=== PATIENT | female | born 1970 | race Caucasian/White ===

== ENCOUNTER → 2017-02-27 | Outpatient (CLI) | payer BC ==
[2017-02-27 15:18] VITALS: BP 121/72; PULSE 72; RESP 16; TEMP 98.5; BMI 24.5
--- NOTE | 2017-02-27 15:20 | P.HPBAR ---
Bariatric H&P - History & Physicial H&P Date: 02/27/17 History & Physicial: Visit/CC: band adj Patient initial contact: Initial weight: 112.945 kg Initial weight in pounds: 249.00 Height: 5 ft 6 in Initial BMI: 40.1 Last weight: Current weight: 69.116 kg Current weight in pounds: 152.00 Current BMI: 24.5 [place] body weight (based on NIH guidelines): 58.967 kg Excess body weight loss: 81.5% The patient is a 47 year-old F who presents for Bariatric Assessment. Patient presents today for her LAP-BAND adjustment. She states her dysphagia has resolved since her band was emptied. She is requesting a fill. Past Medical History Additional Past Medical History / Comment(s): fluid retention (takes HCTZ daily) History of Any Multi-Drug Resistant Organisms: None Reported Past Surgical History: Bariatric Surgery Additional Past Surgical History / Comment(s): lap band placed 07-31-09 Past Anesthesia/Blood Transfusion Reactions: No Reported Reaction Past Psychological History: No Psychological Hx Reported Smoking Status: Former smoker Past Alcohol Use History: Rare Additional Past Alcohol Use History / Comment(s): Quit smoking with band placement in 2009. (was 1pk/day x 20 years) Past Drug Use History: None Reported Surgical - Exam Vital Signs Temp Pulse Resp BP 98.5 F 72 16 121/72 02/27/17 15:14 02/27/17 15:14 02/27/17 15:14 02/27/17 15:14 - General well developed, no distress - Abdomen Abdomen: soft, non tender Bariatric Assessment & Plan Plan: The patient's lap band was adjusted. She had 4 mL added to her band. She's ill drink water without difficulty. She'll follow-up in 2 weeks. Bariatric Checklist Checklist: Plan: Checklist: EGD: 1. Hiatal hernia: 2. H. Pylori: HgbA1c: Vitamin D: Smoking: Former smoker Primary care physician referral: kaylie ([place]) Psychiatry clearance: Cardiology clearance: Sleep study: Diet journal: VTE risk score: VTE risk level: Rehab needs at discharge:
== END | disposition home or self-care (01) ==
LOC: BARWHC3 14:43
PROVIDERS: ATTEND Surgery
DX: Z09 Encounter for follow-up examination after completed treatment for conditions other than malignant neoplasm (principal); Z98.84 Bariatric surgery status; Z87.891 Personal history of nicotine dependence
CPT/HCPCS: 99212

== ENCOUNTER → 2018-04-20 | Outpatient (CLI) | payer BC ==
[2018-04-20 11:37] VITALS: BP 123/82; PULSE 73; TEMP 97.7; BMI 24.0
--- NOTE | 2018-04-20 15:37 | P.HPBAR ---
Bariatric H&P - History & Physicial H&P Date: 04/20/18 History & Physicial: Visit/CC: lap band follow up Patient initial contact: Initial weight: 112.945 kg Initial weight in pounds: 249.00 Height: 5 ft 6 in Initial BMI: 40.1 Last weight: Current weight: 67.585 kg Current weight in pounds: 149.00 Current BMI: 24.0 [place] body weight (based on NIH guidelines): 58.967 kg Excess body weight loss: 84.0% The patient is a 48 year-old F who presents for Bariatric Assessment. Patient' s complaints of dysphagia. She had a lap band adjustments week. Past Medical History Additional Past Medical History / Comment(s): fluid retention (takes HCTZ daily) History of Any Multi-Drug Resistant Organisms: None Reported Past Surgical History: Bariatric Surgery Additional Past Surgical History / Comment(s): lap band placed 07-31-09 Past Anesthesia/Blood Transfusion Reactions: No Reported Reaction Smoking Status: Former smoker Surgical - Exam Vital Signs Temp Pulse BP 97.7 F 73 123/82 04/20/18 11:34 04/20/18 11:34 04/20/18 11:34 - General well developed, no distress - Eyes PERRL - ENT normal pinna - Neck no masses - Abdomen Abdomen: soft, non tender Bariatric Assessment & Plan Plan: Patient LAP-BAND was just. She had 2 mL removed from her LAP-BAND. She currently has 3.3 mL in her band. She was able to water without difficulty. Bariatric Checklist Checklist: Plan: Checklist: EGD: 1. Hiatal hernia: 2. H. Pylori: HgbA1c: Vitamin D: Smoking: Former smoker Primary care physician referral: kaylie ([place]) Psychiatry clearance: Cardiology clearance: Sleep study: Diet journal: VTE risk score: VTE risk level: Rehab needs at discharge:
== END | disposition home or self-care (01) ==
LOC: BARWHC3 10:50
PROVIDERS: ATTEND Surgery
DX: Z46.51 Encounter for fitting and adjustment of gastric lap band (principal); R13.10 Dysphagia, unspecified; Z98.84 Bariatric surgery status; Z87.891 Personal history of nicotine dependence
CPT/HCPCS: 99212

== ENCOUNTER → 2018-04-30 | Outpatient (CLI) | payer BC ==
[2018-04-30 15:11] VITALS: BP 150/80; PULSE 70; TEMP 97.8; BMI 25.2
--- NOTE | 2018-04-30 15:58 | P.HPBAR ---
Bariatric H&P - History & Physicial H&P Date: 04/30/18 History & Physicial: Visit/CC: lap band fill Patient initial contact: Initial weight: 112.945 kg Initial weight in pounds: 249.00 Height: 5 ft 6 in Initial BMI: 40.1 Last weight: Current weight: 70.76 kg Current weight in pounds: 156.00 Current BMI: 25.2 [place] body weight (based on NIH guidelines): 58.967 kg Excess body weight loss: 78.1% The patient is a 48 year-old F who presents for Bariatric Assessment. Patient presents today for her LAP-BAND adjustment. She currently feels hungry. Past Medical History Additional Past Medical History / Comment(s): fluid retention (takes HCTZ daily) History of Any Multi-Drug Resistant Organisms: None Reported Past Surgical History: Bariatric Surgery Additional Past Surgical History / Comment(s): lap band placed 07-31-09 Past Anesthesia/Blood Transfusion Reactions: No Reported Reaction Past Psychological History: No Psychological Hx Reported Smoking Status: Former smoker Past Alcohol Use History: Rare Additional Past Alcohol Use History / Comment(s): Quit smoking with band placement in 2009. (was 1pk/day x 20 years) Past Drug Use History: None Reported Surgical - Exam Vital Signs Temp Pulse BP 97.8 F 70 150/80 04/30/18 15:08 04/30/18 15:08 04/30/18 15:08 - General well developed, well nourished, no distress - Eyes PERRL - ENT normal pinna - Neck no masses - Respiratory normal expansion - Cardiovascular Rhythm: regular - Abdomen Abdomen: soft, non tender Bariatric Assessment & Plan Plan: Patient's lap band was adjusted. She had 1 mL added to the band. She will follow-up month. Bariatric Checklist Checklist: Plan: Checklist: EGD: 1. Hiatal hernia: 2. H. Pylori: HgbA1c: Vitamin D: Smoking: Former smoker Primary care physician referral: kaylie ([place]) Psychiatry clearance: Cardiology clearance: Sleep study: Diet journal: VTE risk score: VTE risk level: Rehab needs at discharge:
== END | disposition home or self-care (01) ==
LOC: BARWHC3 14:58
PROVIDERS: ATTEND Surgery
DX: Z46.51 Encounter for fitting and adjustment of gastric lap band (principal); T73.0XXA Starvation, initial encounter; Z98.84 Bariatric surgery status; Z87.891 Personal history of nicotine dependence
CPT/HCPCS: 99212

== ENCOUNTER → 2018-05-11 | Outpatient (CLI) | payer BC ==
[2018-05-11 09:41] VITALS: BP 110/72; PULSE 79; TEMP 97.6; BMI 26.4
--- NOTE | 2018-05-28 16:16 | P.HPBAR ---
Bariatric H&P - History & Physicial H&P Date: 05/11/18 History & Physicial: Visit/CC: lap band follow up Patient initial contact: Initial weight: 112.945 kg Initial weight in pounds: 249.00 Height: 5 ft 6 in Initial BMI: 40.1 Last weight: Current weight: 74.389 kg Current weight in pounds: 164.00 Current BMI: 26.4 [place] body weight (based on NIH guidelines): 58.967 kg Excess body weight loss: 71.4% The patient is a 48 year-old F who presents for Bariatric Assessment. Patient presents today for lab band follow. She's requesting a fill of her LAP-BAND. Past Medical History Additional Past Medical History / Comment(s): fluid retention (takes HCTZ daily) History of Any Multi-Drug Resistant Organisms: None Reported Past Surgical History: Bariatric Surgery Additional Past Surgical History / Comment(s): lap band placed 07-31-09 Past Anesthesia/Blood Transfusion Reactions: No Reported Reaction Past Psychological History: No Psychological Hx Reported Smoking Status: Former smoker Past Alcohol Use History: Rare Additional Past Alcohol Use History / Comment(s): Quit smoking with band placement in 2009. (was 1pk/day x 20 years) Past Drug Use History: None Reported Surgical - Exam Vital Signs Temp Pulse BP 97.6 F 79 110/72 05/11/18 09:38 05/11/18 09:38 05/11/18 09:38 - General well developed, well nourished, no distress - Eyes PERRL - ENT normal pinna - Respiratory normal expansion - Cardiovascular Rhythm: regular - Abdomen Abdomen: soft, non tender Bariatric Assessment & Plan Plan: Patient's lap band was adjusted. She had 1 mL added to her band. She's ill drink water without difficulty. She'll follow-up in 4 weeks. Bariatric Checklist Checklist: Plan: Checklist: EGD: 1. Hiatal hernia: 2. H. Pylori: HgbA1c: Vitamin D: Smoking: Former smoker Primary care physician referral: kaylie ([place]) Psychiatry clearance: Cardiology clearance: Sleep study: Diet journal: VTE risk score: VTE risk level: Rehab needs at discharge:
== END | disposition home or self-care (01) ==
LOC: BARWHC3 08:53
PROVIDERS: ATTEND Surgery
DX: Z48.815 Encounter for surgical aftercare following surgery on the digestive system (principal); Z98.84 Bariatric surgery status; Z87.891 Personal history of nicotine dependence
CPT/HCPCS: 99212